=== PATIENT | female | born 1960 | race Caucasian/White ===

== ENCOUNTER 2018-02-10 11:12 | Inpatient (IN) | payer MEDICARE, OTHER ==
[2018-02-10] MEDS: SOD CHLORIDE 0.9% 1,000 ML IV (16:54)
[2018-02-10 16:57] LABS: ADD MAN DIFF? NO
[2018-02-10 17:00] LABS: WHITE BLOOD COUNT 7.3 10^3/ul (4.8-10.8)
[2018-02-10 17:00] LABS: BASOPHILS % 0.5 % (0.0-2.0); EOSINOPHILS # 0.1 10^3/ul (0.0-0.5); EOSINOPHILS % 1.4 % (0.0-7.0); HEMATOCRIT 40.5 % (37.0-47.0); HEMOGLOBIN 13.1 g/dl (12.0-16.0); LYMPHOCYTES # 2.5 10^3/ul (0.8-2.9); LYMPHOCYTES % 34.8 % (15.0-51.0); MEAN CORPUSCULAR HEMOGLOBIN 30.1 pg (29.0-33.0); MEAN CORPUSCULAR HGB CONC 32.3 g/dl (32.0-37.0); MEAN CORPUSCULAR VOLUME 93.1 fl (82.0-101.0); MEAN PLATELET VOLUME 12.2 fl (7.4-10.4); MONOCYTE # 0.8 10^3/ul (0.3-0.9); MONOCYTES % 10.6 % (0.0-11.0); NEUTROPHIL # 3.8 10^3/ul (1.6-7.5); NEUTROPHILS % 52.4 % (39.0-77.0); PLATELET COUNT 163 10^3/UL (140-415); RED BLOOD COUNT 4.35 10^6/ul (4.20-5.40); RED CELL DISTRIBUTION WIDTH 14.6 % (11.5-14.5)
[2018-02-10 17:46] LABS: ADD UMIC NO; UR ASCORBIC ACID NEGATIVE (NEGATIVE); UR BILIRUBIN (Dip) NEGATIVE (NEGATIVE); UR BLOOD (Dip) NEGATIVE (NEGATIVE); UR CLARITY CLEAR (CLEAR); UR COLOR STRAW (YELLOW); UR GLUCOSE (Dip) NEGATIVE (NEGATIVE); UR KETONES (Dip) NEGATIVE (NEGATIVE); UR LEUKOCYTE ESTERASE (Dip) NEGATIVE Leu/ul (NEGATIVE); UR NITRITE (Dip) NEGATIVE (NEGATIVE); UR SPECIFIC GRAVITY (Dip) 1.006 (1.003-1.030); UR TOTAL PROTEIN (Dip) NEGATIVE (NEGATIVE); UR UROBILINOGEN (Dip) NEGATIVE (NEGATIVE)
[2018-02-10 18:16] LABS: INR 0.96; PROTIME 12.9 Sec (11.9-14.9)
[2018-02-10 18:17] LABS: PARTIAL THROMBOPLASTIN TIME 26.6 Sec (25.0-35.0)
[2018-02-10 18:20] LABS: ALANINE AMINOTRANSFERASE 26 IU/L (13-69); ALBUMIN 3.8 g/dl (3.3-4.9); ALBUMIN/GLOBULIN RATIO 1.15; ALKALINE PHOSPHATASE 131 IU/L (42-121); ANION GAP 16 (8-16); ASPARTATE AMINO TRANSFERASE 18 IU/L (15-46); BILIRUBIN,INDIRECT 0.2 mg/dl (0-1.1); BILIRUBIN,TOTAL 0.2 mg/dl (0.2-1.3); BLOOD UREA NITROGEN 31 mg/dl (7-20); CALCIUM 7.6 mg/dl (8.4-10.2); CARBON DIOXIDE 23 mmol/L (21-31); CHLORIDE 109 mmol/L (97-110); CREATININE 1.59 mg/dl (0.44-1.00); GLUCOSE 83 mg/dl (70-220); POTASSIUM 4.9 mmol/L (3.5-5.1); SODIUM 143 mmol/L (135-144); TOTAL PROTEIN 7.1 g/dl (6.1-8.1)
[2018-02-10 18:32] LABS: TROPONIN-I < 0.010 ng/ml (0.000-0.120)
[2018-02-10] MEDS ORDERED: ONDANSETRON 4 MG INJ IV (19:00)
[2018-02-10] MEDS ORDERED: ACETAMINOPHEN 325 MG TAB PO (19:00)
[2018-02-10] MEDS: ZOLPIDEM 5 MG TAB PO (23:55)
[2018-02-11 06:01] LABS: ADD MAN DIFF? NO
[2018-02-11 06:05] LABS: WHITE BLOOD COUNT 6.9 10^3/ul (4.8-10.8)
[2018-02-11 06:05] LABS: BASOPHILS % 0.6 % (0.0-2.0); EOSINOPHILS # 0.1 10^3/ul (0.0-0.5); EOSINOPHILS % 1.6 % (0.0-7.0); HEMATOCRIT 37.8 % (37.0-47.0); HEMOGLOBIN 11.9 g/dl (12.0-16.0); LYMPHOCYTES # 2.5 10^3/ul (0.8-2.9); LYMPHOCYTES % 36.6 % (15.0-51.0); MEAN CORPUSCULAR HEMOGLOBIN 30.1 pg (29.0-33.0); MEAN CORPUSCULAR HGB CONC 31.5 g/dl (32.0-37.0); MEAN CORPUSCULAR VOLUME 95.7 fl (82.0-101.0); MEAN PLATELET VOLUME 12.4 fl (7.4-10.4); MONOCYTE # 0.6 10^3/ul (0.3-0.9); MONOCYTES % 9.3 % (0.0-11.0); NEUTROPHIL # 3.6 10^3/ul (1.6-7.5); NEUTROPHILS % 51.6 % (39.0-77.0); PLATELET COUNT 149 10^3/UL (140-415); RED BLOOD COUNT 3.95 10^6/ul (4.20-5.40); RED CELL DISTRIBUTION WIDTH 14.2 % (11.5-14.5)
[2018-02-11 06:41] LABS: ALANINE AMINOTRANSFERASE 26 IU/L (13-69); ALBUMIN 3.6 g/dl (3.3-4.9); ALBUMIN/GLOBULIN RATIO 1.09; ALKALINE PHOSPHATASE 122 IU/L (42-121); ANION GAP 13 (8-16); ASPARTATE AMINO TRANSFERASE 15 IU/L (15-46); BILIRUBIN,INDIRECT 0.2 mg/dl (0-1.1); BILIRUBIN,TOTAL 0.2 mg/dl (0.2-1.3); BLOOD UREA NITROGEN 28 mg/dl (7-20); CALCIUM 7.8 mg/dl (8.4-10.2); CARBON DIOXIDE 27 mmol/L (21-31); CHLORIDE 109 mmol/L (97-110); CREATININE 1.58 mg/dl (0.44-1.00); GLUCOSE 89 mg/dl (70-220); SODIUM 144 mmol/L (135-144); TOTAL PROTEIN 6.9 g/dl (6.1-8.1)
[2018-02-11 07:06] LABS: POTASSIUM 5.3 mmol/L (3.5-5.1)
[2018-02-11] MEDS: carBAMAZepine (XR) 100 MG TABSR PO ×3 (08:45→20:44)
[2018-02-11] MEDS: ACETAZOLAMIDE 250 MG TAB PO ×3 (08:46→20:44)
[2018-02-11] MEDS: FUROSEMIDE 40 MG TAB PO (08:47)
[2018-02-11] MEDS: LISINOPRIL 10 MG TAB PO (08:48)
[2018-02-11] MEDS ORDERED: carBAMAZepine (XR) 200 MG TABSR PO (09:00)
[2018-02-12 05:46] LABS: ADD MAN DIFF? NO
[2018-02-12 05:59] LABS: BASOPHILS % 0.3 % (0.0-2.0); EOSINOPHILS # 0.1 10^3/ul (0.0-0.5); EOSINOPHILS % 1.1 % (0.0-7.0); HEMATOCRIT 36.4 % (37.0-47.0); HEMOGLOBIN 11.3 g/dl (12.0-16.0); LYMPHOCYTES # 2.7 10^3/ul (0.8-2.9); LYMPHOCYTES % 38.1 % (15.0-51.0); MEAN CORPUSCULAR HEMOGLOBIN 29.8 pg (29.0-33.0); MEAN PLATELET VOLUME 12.4 fl (7.4-10.4); MONOCYTE # 0.7 10^3/ul (0.3-0.9); MONOCYTES % 9.4 % (0.0-11.0); NEUTROPHIL # 3.6 10^3/ul (1.6-7.5); NEUTROPHILS % 50.8 % (39.0-77.0); PLATELET COUNT 143 10^3/UL (140-415); RED BLOOD COUNT 3.79 10^6/ul (4.20-5.40); RED CELL DISTRIBUTION WIDTH 14.4 % (11.5-14.5)
[2018-02-12 05:59] LABS: WHITE BLOOD COUNT 7.1 10^3/ul (4.8-10.8)
[2018-02-12 06:43] LABS: ANION GAP 11 (8-16); BLOOD UREA NITROGEN 32 mg/dl (7-20); CARBON DIOXIDE 27 mmol/L (21-31); CHLORIDE 109 mmol/L (97-110); CREATININE 1.59 mg/dl (0.44-1.00); GLUCOSE 92 mg/dl (70-220); MAGNESIUM 2.5 mg/dl (1.7-2.5); POTASSIUM 4.7 mmol/L (3.5-5.1); SODIUM 142 mmol/L (135-144)
[2018-02-12] MEDS: ACETAZOLAMIDE 250 MG TAB PO ×3 (08:41→20:54)
[2018-02-12] MEDS: FUROSEMIDE 40 MG TAB PO (08:42)
[2018-02-12] MEDS: carBAMAZepine (XR) 100 MG TABSR PO ×3 (08:42→21:16)
[2018-02-12] MEDS: ENOXAPARIN 30 MG/0.3 ML SYG SC (15:37)
[2018-02-13 05:11] LABS: ADD UMIC NO
[2018-02-13 05:12] LABS: UR BILIRUBIN (Dip) NEGATIVE (NEGATIVE); UR BLOOD (Dip) NEGATIVE (NEGATIVE); UR CLARITY CLEAR (CLEAR); UR COLOR YELLOW (YELLOW); UR GLUCOSE (Dip) NEGATIVE (NEGATIVE); UR KETONES (Dip) NEGATIVE (NEGATIVE); UR NITRITE (Dip) NEGATIVE (NEGATIVE); UR TOTAL PROTEIN (Dip) NEGATIVE (NEGATIVE); UR UROBILINOGEN (Dip) 0.2 E.U./dL mg/dL (NEGATIVE)
[2018-02-13 05:13] LABS: UR LEUKOCYTE ESTERASE (Dip) NEGATIVE Leu/ul (NEGATIVE)
[2018-02-13 06:22] LABS: AMMONIA < 9 umol/l (9-30)
[2018-02-13 06:27] LABS: CARBAMAZEPINE (TEGRETOL) 6.6 ug/ml (8.0-12.0)
[2018-02-13] MEDS: carBAMAZepine (XR) 100 MG TABSR PO ×3 (07:23→23:30)
[2018-02-13] MEDS: ACETAZOLAMIDE 250 MG TAB PO ×3 (08:44→21:09)
[2018-02-13] MEDS: FUROSEMIDE 40 MG TAB PO (08:44)
[2018-02-13] MEDS: ENOXAPARIN 30 MG/0.3 ML SYG SC (08:45)
[2018-02-13] MEDS: LORAZEPAM 1 MG TAB PO (21:09)
[2018-02-14] MEDS: carBAMAZepine (XR) 100 MG TABSR PO ×3 (06:00→21:13)
[2018-02-14] MEDS: FUROSEMIDE 40 MG TAB PO (08:46)
[2018-02-14] MEDS: ACETAZOLAMIDE 250 MG TAB PO ×3 (08:47→21:13)
[2018-02-14] MEDS: ENOXAPARIN 30 MG/0.3 ML SYG SC (08:48)
[2018-02-15] MEDS: carBAMAZepine (XR) 100 MG TABSR PO ×2 (05:37→13:24)
[2018-02-15] MEDS: ENOXAPARIN 30 MG/0.3 ML SYG SC (08:47)
[2018-02-15] MEDS: ACETAZOLAMIDE 250 MG TAB PO ×3 (08:48→20:29)
[2018-02-15] MEDS: FUROSEMIDE 40 MG TAB PO (08:55)
== END 2018-02-15 21:00 | DRG 886 ==
LOC: MS2 22:02 → E/R 11:12 → MS2 18:57
PROVIDERS: Internal Medicine
DX: R48.2 Apraxia (principal); G92 Toxic encephalopathy; I42.0 Dilated cardiomyopathy; G91.2 (Idiopathic) normal pressure hydrocephalus; Z68.43 Body mass index [BMI] 50.0-59.9, adult; R26.0 Ataxic gait; R53.1 Weakness; F79 Unspecified intellectual disabilities; G40.909 Epilepsy, unspecified, not intractable, without status epilepticus; E66.9 Obesity, unspecified
CPT/HCPCS: 36415; 70450; 70551; 71045; 80048; 80053; 80156; 81003; 82140; 83735; 84484; 85025; 85610; 85730; 92526; 92610; 93005; 96360; 96361; 97110; 97116; 97162; 97530; 99285-25

== ENCOUNTER 2018-02-15 21:25 | Inpatient (IN) | payer MEDICARE, OTHER ==
[2018-02-15] MEDS ORDERED: MAGNESIUM HYDROXIDE 30ML CUP PO (22:00)
[2018-02-15] MEDS ORDERED: LACTULOSE 30ML CUP PO (22:00)
[2018-02-15] MEDS ORDERED: ACETAMINOPHEN 325 MG TAB PO (22:00)
[2018-02-15] MEDS ORDERED: BISACODYL 10 MG SUPP PR (22:00)
[2018-02-15] MEDS ORDERED: ZOLPIDEM 5 MG TAB PO (22:17)
[2018-02-16 04:58] LABS: ADD UMIC YES; UR ASCORBIC ACID NEGATIVE (NEGATIVE); UR BILIRUBIN (Dip) NEGATIVE (NEGATIVE); UR BLOOD (Dip) 1+ mg/dL (NEGATIVE); UR CLARITY CLEAR (CLEAR); UR COLOR YELLOW (YELLOW); UR GLUCOSE (Dip) NEGATIVE (NEGATIVE); UR KETONES (Dip) NEGATIVE (NEGATIVE); UR LEUKOCYTE ESTERASE (Dip) NEGATIVE Leu/ul (NEGATIVE); UR NITRITE (Dip) NEGATIVE (NEGATIVE); UR RBC 0 /HPF (0-5); UR SPECIFIC GRAVITY (Dip) 1.017 (1.003-1.030); UR SQUAMOUS EPITHELIAL CELL FEW /HPF (FEW); UR TOTAL PROTEIN (Dip) NEGATIVE (NEGATIVE); UR UROBILINOGEN (Dip) NEGATIVE (NEGATIVE); UR WBC 1 /HPF (0-5)
[2018-02-16] MEDS ORDERED: LACTULOSE 30ML CUP PO (06:00)
[2018-02-16] MEDS ORDERED: ACETAMINOPHEN 325 MG TAB PO (06:00)
[2018-02-16] MEDS ORDERED: MAGNESIUM HYDROXIDE 30ML CUP PO (06:00)
[2018-02-16] MEDS ORDERED: BISACODYL 10 MG SUPP PR (06:00)
[2018-02-16] MEDS: carBAMAZepine (XR) 100 MG TABSR PO ×3 (06:15→21:02)
[2018-02-16 06:34] LABS: ADD MAN DIFF? NO
[2018-02-16 06:42] LABS: BASOPHILS % 0.3 % (0.0-2.0); EOSINOPHILS # 0.1 10^3/ul (0.0-0.5); EOSINOPHILS % 1.9 % (0.0-7.0); HEMOGLOBIN 11.8 g/dl (12.0-16.0); LYMPHOCYTES # 1.9 10^3/ul (0.8-2.9); LYMPHOCYTES % 33.3 % (15.0-51.0); MEAN CORPUSCULAR HGB CONC 30.3 g/dl (32.0-37.0); MEAN CORPUSCULAR VOLUME 95.8 fl (82.0-101.0); MEAN PLATELET VOLUME 12.5 fl (7.4-10.4); MONOCYTE # 0.6 10^3/ul (0.3-0.9); MONOCYTES % 10.5 % (0.0-11.0); NEUTROPHIL # 3.1 10^3/ul (1.6-7.5); NEUTROPHILS % 53.8 % (39.0-77.0); PLATELET COUNT 131 10^3/UL (140-415); RED BLOOD COUNT 4.07 10^6/ul (4.20-5.40)
[2018-02-16 06:42] LABS: WHITE BLOOD COUNT 5.8 10^3/ul (4.8-10.8)
[2018-02-16 07:07] LABS: ALANINE AMINOTRANSFERASE 24 IU/L (13-69); ALBUMIN 3.5 g/dl (3.3-4.9); ALBUMIN/GLOBULIN RATIO 1.06; ALKALINE PHOSPHATASE 113 IU/L (42-121); ANION GAP 13 (8-16); ASPARTATE AMINO TRANSFERASE 16 IU/L (15-46); BILIRUBIN,INDIRECT 0.2 mg/dl (0-1.1); BILIRUBIN,TOTAL 0.2 mg/dl (0.2-1.3); BLOOD UREA NITROGEN 34 mg/dl (7-20); CALCIUM 8.6 mg/dl (8.4-10.2); CARBON DIOXIDE 31 mmol/L (21-31); CHLORIDE 107 mmol/L (97-110); CREATININE 1.42 mg/dl (0.44-1.00); GLUCOSE 91 mg/dl (70-220); POTASSIUM 4.4 mmol/L (3.5-5.1); SODIUM 147 mmol/L (135-144); TOTAL PROTEIN 6.8 g/dl (6.1-8.1)
[2018-02-16] MEDS: DOCUSATE SODIUM 100 MG CAP PO ×2 (08:47→21:01)
[2018-02-16] MEDS: ACETAZOLAMIDE 250 MG TAB PO ×3 (08:48→21:01)
[2018-02-16] MEDS: FUROSEMIDE 40 MG TAB PO (08:48)
[2018-02-16] MEDS: ENOXAPARIN 30 MG/0.3 ML SYG SC (08:50)
[2018-02-16] MEDS ORDERED: DOCUSATE SODIUM 100 MG CAP PO (09:00)
[2018-02-16] MEDS ORDERED: SENNA TAB PO (21:00)
[2018-02-16] MEDS: SENNA TAB PO (21:01)
[2018-02-17] MEDS: carBAMAZepine (XR) 100 MG TABSR PO ×3 (06:17→21:22)
[2018-02-17] MEDS: DOCUSATE SODIUM 100 MG CAP PO ×2 (08:49→21:19)
[2018-02-17] MEDS: ACETAZOLAMIDE 250 MG TAB PO ×3 (08:50→21:19)
[2018-02-17] MEDS: FUROSEMIDE 40 MG TAB PO (08:50)
[2018-02-17] MEDS: ENOXAPARIN 30 MG/0.3 ML SYG SC (08:51)
[2018-02-17 16:40] LABS: ADD UMIC NO; UR ASCORBIC ACID NEGATIVE (NEGATIVE); UR BILIRUBIN (Dip) NEGATIVE (NEGATIVE); UR BLOOD (Dip) NEGATIVE (NEGATIVE); UR CLARITY CLEAR (CLEAR); UR COLOR STRAW (YELLOW); UR GLUCOSE (Dip) NEGATIVE (NEGATIVE); UR KETONES (Dip) NEGATIVE (NEGATIVE); UR LEUKOCYTE ESTERASE (Dip) NEGATIVE Leu/ul (NEGATIVE); UR NITRITE (Dip) NEGATIVE (NEGATIVE); UR SPECIFIC GRAVITY (Dip) 1.008 (1.003-1.030); UR TOTAL PROTEIN (Dip) NEGATIVE (NEGATIVE); UR UROBILINOGEN (Dip) NEGATIVE (NEGATIVE)
[2018-02-17] MEDS: SENNA TAB PO (21:19)
[2018-02-18] MEDS: carBAMAZepine (XR) 100 MG TABSR PO ×3 (06:49→21:31)
[2018-02-18] MEDS: ACETAZOLAMIDE 250 MG TAB PO ×3 (08:47→21:30)
[2018-02-18] MEDS: DOCUSATE SODIUM 100 MG CAP PO ×2 (08:47→21:00)
[2018-02-18] MEDS: FUROSEMIDE 40 MG TAB PO (08:47)
[2018-02-18] MEDS: ENOXAPARIN 30 MG/0.3 ML SYG SC (08:48)
[2018-02-18] MEDS: SENNA TAB PO (21:00)
[2018-02-19] MEDS: carBAMAZepine (XR) 100 MG TABSR PO ×3 (06:52→21:37)
[2018-02-19] MEDS: DOCUSATE SODIUM 100 MG CAP PO ×2 (08:34→21:00)
[2018-02-19] MEDS: ACETAZOLAMIDE 250 MG TAB PO ×3 (08:34→21:37)
[2018-02-19] MEDS: ENOXAPARIN 30 MG/0.3 ML SYG SC (08:37)
[2018-02-19] MEDS: FUROSEMIDE 40 MG TAB PO (08:39)
[2018-02-19] MEDS: SENNA TAB PO (21:00)
[2018-02-20 06:31] LABS: ADD MAN DIFF? NO
[2018-02-20] MEDS: carBAMAZepine (XR) 100 MG TABSR PO ×3 (06:33→21:20)
[2018-02-20 06:34] LABS: BASOPHIL # 0.1 10^3/ul (0.0-0.1); BASOPHILS % 0.8 % (0.0-2.0); EOSINOPHILS # 0.1 10^3/ul (0.0-0.5); EOSINOPHILS % 1.8 % (0.0-7.0); HEMOGLOBIN 12.1 g/dl (12.0-16.0); MEAN CORPUSCULAR HEMOGLOBIN 28.7 pg (29.0-33.0); MEAN CORPUSCULAR HGB CONC 30.3 g/dl (32.0-37.0); MEAN PLATELET VOLUME 12.3 fl (7.4-10.4); MONOCYTE # 0.7 10^3/ul (0.3-0.9); NEUTROPHIL # 4.1 10^3/ul (1.6-7.5); PLATELET COUNT 160 10^3/UL (140-415); RED BLOOD COUNT 4.21 10^6/ul (4.20-5.40); RED CELL DISTRIBUTION WIDTH 14.2 % (11.5-14.5)
[2018-02-20 07:00] LABS: ANION GAP 13 (8-16); BLOOD UREA NITROGEN 44 mg/dl (7-20); CALCIUM 8.5 mg/dl (8.4-10.2); CARBON DIOXIDE 28 mmol/L (21-31); CHLORIDE 108 mmol/L (97-110); CREATININE 1.51 mg/dl (0.44-1.00); GLUCOSE 89 mg/dl (70-220); MAGNESIUM 2.6 mg/dl (1.7-2.5); POTASSIUM 4.4 mmol/L (3.5-5.1); SODIUM 145 mmol/L (135-144)
[2018-02-20] MEDS: DOCUSATE SODIUM 100 MG CAP PO ×2 (09:31→20:05)
[2018-02-20] MEDS: FUROSEMIDE 40 MG TAB PO (09:31)
[2018-02-20] MEDS: ACETAZOLAMIDE 250 MG TAB PO ×3 (09:32→20:07)
[2018-02-20] MEDS: ENOXAPARIN 30 MG/0.3 ML SYG SC (09:34)
[2018-02-20] MEDS: SENNA TAB PO (20:06)
[2018-02-21] MEDS: carBAMAZepine (XR) 100 MG TABSR PO ×3 (06:11→21:11)
[2018-02-21] MEDS: DOCUSATE SODIUM 100 MG CAP PO ×2 (08:41→21:11)
[2018-02-21] MEDS: ACETAZOLAMIDE 250 MG TAB PO ×3 (08:41→21:14)
[2018-02-21] MEDS: ENOXAPARIN 30 MG/0.3 ML SYG SC (08:42)
[2018-02-21] MEDS: FUROSEMIDE 40 MG TAB PO (08:42)
[2018-02-21] MEDS: SENNA TAB PO (21:11)
[2018-02-22] MEDS: carBAMAZepine (XR) 100 MG TABSR PO ×3 (06:52→22:51)
[2018-02-22] MEDS: ACETAZOLAMIDE 250 MG TAB PO ×3 (08:59→20:50)
[2018-02-22] MEDS: DOCUSATE SODIUM 100 MG CAP PO ×2 (08:59→20:49)
[2018-02-22] MEDS: FUROSEMIDE 40 MG TAB PO (08:59)
[2018-02-22] MEDS: ENOXAPARIN 30 MG/0.3 ML SYG SC (09:01)
[2018-02-22] MEDS: SENNA TAB PO (20:50)
[2018-02-23] MEDS: carBAMAZepine (XR) 100 MG TABSR PO ×3 (06:26→21:39)
[2018-02-23] MEDS: DOCUSATE SODIUM 100 MG CAP PO ×2 (09:07→21:00)
[2018-02-23] MEDS: ACETAZOLAMIDE 250 MG TAB PO ×3 (09:07→20:50)
[2018-02-23] MEDS: FUROSEMIDE 40 MG TAB PO (09:08)
[2018-02-23] MEDS: ENOXAPARIN 30 MG/0.3 ML SYG SC (09:11)
[2018-02-23] MEDS: SENNA TAB PO (21:00)
[2018-02-24] MEDS: carBAMAZepine (XR) 100 MG TABSR PO ×3 (05:43→21:05)
[2018-02-24] MEDS: DOCUSATE SODIUM 100 MG CAP PO ×2 (09:00→20:42)
[2018-02-24] MEDS: ACETAZOLAMIDE 250 MG TAB PO ×3 (11:09→20:39)
[2018-02-24] MEDS: FUROSEMIDE 40 MG TAB PO (11:10)
[2018-02-24] MEDS: ENOXAPARIN 30 MG/0.3 ML SYG SC (11:11)
[2018-02-24] MEDS: SENNA TAB PO (20:42)
[2018-02-25] MEDS: carBAMAZepine (XR) 100 MG TABSR PO ×3 (06:16→21:18)
[2018-02-25 07:02] LABS: ADD MAN DIFF? NO
[2018-02-25 07:07] LABS: WHITE BLOOD COUNT 6.7 10^3/ul (4.8-10.8)
[2018-02-25 07:07] LABS: BASOPHILS % 0.4 % (0.0-2.0); EOSINOPHILS # 0.1 10^3/ul (0.0-0.5); EOSINOPHILS % 1.6 % (0.0-7.0); HEMATOCRIT 38.7 % (37.0-47.0); HEMOGLOBIN 11.9 g/dl (12.0-16.0); LYMPHOCYTES # 2.4 10^3/ul (0.8-2.9); LYMPHOCYTES % 36.2 % (15.0-51.0); MEAN CORPUSCULAR HEMOGLOBIN 29.3 pg (29.0-33.0); MEAN CORPUSCULAR HGB CONC 30.7 g/dl (32.0-37.0); MEAN CORPUSCULAR VOLUME 95.3 fl (82.0-101.0); MEAN PLATELET VOLUME 12.3 fl (7.4-10.4); MONOCYTE # 0.7 10^3/ul (0.3-0.9); MONOCYTES % 9.7 % (0.0-11.0); NEUTROPHIL # 3.5 10^3/ul (1.6-7.5); NEUTROPHILS % 51.8 % (39.0-77.0); PLATELET COUNT 169 10^3/UL (140-415); RED BLOOD COUNT 4.06 10^6/ul (4.20-5.40); RED CELL DISTRIBUTION WIDTH 14.2 % (11.5-14.5)
[2018-02-25 07:23] LABS: ANION GAP 11 (8-16); BLOOD UREA NITROGEN 42 mg/dl (7-20); CALCIUM 8.5 mg/dl (8.4-10.2); CARBON DIOXIDE 28 mmol/L (21-31); CHLORIDE 109 mmol/L (97-110); CREATININE 1.34 mg/dl (0.44-1.00); GLUCOSE 87 mg/dl (70-220); MAGNESIUM 2.4 mg/dl (1.7-2.5); POTASSIUM 4.4 mmol/L (3.5-5.1); SODIUM 144 mmol/L (135-144)
[2018-02-25] MEDS: ACETAZOLAMIDE 250 MG TAB PO ×3 (08:51→20:19)
[2018-02-25] MEDS: FUROSEMIDE 40 MG TAB PO (08:52)
[2018-02-25] MEDS: DOCUSATE SODIUM 100 MG CAP PO ×2 (08:52→20:23)
[2018-02-25] MEDS: ENOXAPARIN 30 MG/0.3 ML SYG SC (08:56)
[2018-02-25] MEDS: SENNA TAB PO (20:23)
[2018-02-26] MEDS: carBAMAZepine (XR) 100 MG TABSR PO ×3 (05:58→21:27)
[2018-02-26] MEDS: DOCUSATE SODIUM 100 MG CAP PO (08:21)
[2018-02-26] MEDS: FUROSEMIDE 40 MG TAB PO (08:38)
[2018-02-26] MEDS: ACETAZOLAMIDE 250 MG TAB PO ×3 (08:39→21:27)
[2018-02-26] MEDS: ENOXAPARIN 30 MG/0.3 ML SYG SC (08:40)
[2018-02-27] MEDS: carBAMAZepine (XR) 100 MG TABSR PO ×2 (06:02→12:55)
[2018-02-27] MEDS: ACETAZOLAMIDE 250 MG TAB PO ×2 (08:19→12:53)
[2018-02-27] MEDS: FUROSEMIDE 40 MG TAB PO (08:20)
[2018-02-27] MEDS: ENOXAPARIN 30 MG/0.3 ML SYG SC (08:23)
== END 2018-02-27 14:00 | disposition home health service (06) | DRG 92 ==
LOC: VRC 21:25
PROC: F07Z5ZZ Bed Mobility Treatment (ICD-10-PCS; principal; 2018-02-15)
PROC: F08Z2ZZ Grooming/Personal Hygiene Treatment (ICD-10-PCS; 2018-02-15)
PROC: F06Z6ZZ Communicative/Cognitive Integration Skills Treatment (ICD-10-PCS; 2018-02-15)
PROC: 3E0F7GC Introduction of Other Therapeutic Substance into Respiratory Tract, Via Natural or Artificial Opening (ICD-10-PCS; 2018-02-15)
DX: G92 Toxic encephalopathy (principal); I42.9 Cardiomyopathy, unspecified; Z68.44 Body mass index [BMI] 60.0-69.9, adult; N28.9 Disorder of kidney and ureter, unspecified; R13.10 Dysphagia, unspecified; G40.909 Epilepsy, unspecified, not intractable, without status epilepticus; I10 Essential (primary) hypertension; E66.01 Morbid (severe) obesity due to excess calories; F06.31 Mood disorder due to known physiological condition with depressive features; F79 Unspecified intellectual disabilities
CPT/HCPCS: 71045; 80048; 80053; 81001; 81003; 83735; 85025; 87081; 87086; 97110; 97112; 97116; 97150; 97163; 97167; 97530; 97535

== ENCOUNTER → 2019-02-15 | Outpatient (CLI) | payer MEDICARE, OTHER ==
[2019-02-15 10:47] LABS: ADD MAN DIFF? NO
[2019-02-15 10:56] LABS: BASOPHILS % 0.6 % (0.0-2.0); EOSINOPHILS # 0.1 10^3/ul (0.0-0.5); EOSINOPHILS % 1.7 % (0.0-7.0); HEMATOCRIT 40.9 % (37.0-47.0); HEMOGLOBIN 12.7 g/dl (12.0-16.0); LYMPHOCYTES # 2.1 10^3/ul (0.8-2.9); LYMPHOCYTES % 29.2 % (15.0-51.0); MEAN CORPUSCULAR HEMOGLOBIN 29.4 pg (29.0-33.0); MEAN CORPUSCULAR HGB CONC 31.1 g/dl (32.0-37.0); MEAN CORPUSCULAR VOLUME 94.7 fl (82.0-101.0); MEAN PLATELET VOLUME 12.3 fl (7.4-10.4); MONOCYTE # 0.6 10^3/ul (0.3-0.9); MONOCYTES % 8.3 % (0.0-11.0); NEUTROPHIL # 4.3 10^3/ul (1.6-7.5); NEUTROPHILS % 59.9 % (39.0-77.0); PLATELET COUNT 174 10^3/UL (140-415); RED BLOOD COUNT 4.32 10^6/ul (4.20-5.40); RED CELL DISTRIBUTION WIDTH 14.6 % (11.5-14.5)
[2019-02-15 10:56] LABS: WHITE BLOOD COUNT 7.2 10^3/ul (4.8-10.8)
[2019-02-15 11:12] LABS: ANION GAP 11 (5-13); BLOOD UREA NITROGEN 41 mg/dl (7-20); CALCIUM 8.8 mg/dl (8.4-10.2); CARBON DIOXIDE 23 mmol/L (21-31); CHLORIDE 114 mmol/L (97-110); CREATININE 1.84 mg/dl (0.44-1.00); Estimated GFR 28 mL/min (>60); GLUCOSE 101 mg/dl (70-220); POTASSIUM 5.3 mmol/L (3.5-5.1); SODIUM 148 mmol/L (135-144)
== END | disposition home or self-care (01) ==
LOC: LAB 10:22
DX: J18.9 Pneumonia, unspecified organism (principal)
CPT/HCPCS: 71046; 80048; 85025

== ENCOUNTER 2019-03-11 08:52 | Inpatient (IN) | payer MEDICARE, OTHER ==
[2019-03-11 09:42] LABS: ADD MAN DIFF? NO
[2019-03-11 09:43] LABS: WHITE BLOOD COUNT 6.9 10^3/ul (4.8-10.8)
[2019-03-11 09:43] LABS: BASOPHILS % 0.6 % (0.0-2.0); EOSINOPHILS # 0.1 10^3/ul (0.0-0.5); EOSINOPHILS % 0.7 % (0.0-7.0); HEMATOCRIT 42.4 % (37.0-47.0); HEMOGLOBIN 13.3 g/dl (12.0-16.0); LYMPHOCYTES # 2.6 10^3/ul (0.8-2.9); LYMPHOCYTES % 37.5 % (15.0-51.0); MEAN CORPUSCULAR HEMOGLOBIN 29.4 pg (29.0-33.0); MEAN CORPUSCULAR HGB CONC 31.4 g/dl (32.0-37.0); MEAN CORPUSCULAR VOLUME 93.8 fl (82.0-101.0); MEAN PLATELET VOLUME 11.8 fl (7.4-10.4); MONOCYTE # 0.6 10^3/ul (0.3-0.9); MONOCYTES % 8.7 % (0.0-11.0); NEUTROPHIL # 3.6 10^3/ul (1.6-7.5); NEUTROPHILS % 52.2 % (39.0-77.0); PLATELET COUNT 176 10^3/UL (140-415); RED BLOOD COUNT 4.52 10^6/ul (4.20-5.40); RED CELL DISTRIBUTION WIDTH 14.3 % (11.5-14.5)
[2019-03-11 10:02] LABS: INR 0.99; PROTIME 13.2 Sec (11.9-14.9)
[2019-03-11 10:03] LABS: ALANINE AMINOTRANSFERASE 19 IU/L (13-69); ALBUMIN 4.4 g/dl (3.3-4.9); ALBUMIN/GLOBULIN RATIO 1.12; ALKALINE PHOSPHATASE 120 IU/L (42-121); ANION GAP 8 (5-13); ASPARTATE AMINO TRANSFERASE 16 IU/L (15-46); BILIRUBIN,INDIRECT 0.3 mg/dl (0-1.1); BILIRUBIN,TOTAL 0.3 mg/dl (0.2-1.3); CALCIUM 9.4 mg/dl (8.4-10.2); CARBON DIOXIDE 27 mmol/L (21-31); CHLORIDE 111 mmol/L (97-110); Estimated GFR 31 mL/min (>60); GLUCOSE 96 mg/dl (70-220); TOTAL PROTEIN 8.3 g/dl (6.1-8.1)
[2019-03-11 10:07] LABS: BLOOD UREA NITROGEN 40 mg/dl (7-20); CREATININE 1.69 mg/dl (0.44-1.00); POTASSIUM 5.4 mmol/L (3.5-5.1); SODIUM 146 mmol/L (135-144)
[2019-03-11 10:08] LABS: PARTIAL THROMBOPLASTIN TIME 23.9 Sec (23.0-35.0)
[2019-03-11 11:07] LABS: ALANINE AMINOTRANSFERASE 16 IU/L (13-69); ALBUMIN 4.3 g/dl (3.3-4.9); ALBUMIN/GLOBULIN RATIO 1.13; ALKALINE PHOSPHATASE 117 IU/L (42-121); ANION GAP 8 (5-13); ASPARTATE AMINO TRANSFERASE 17 IU/L (15-46); BILIRUBIN,INDIRECT 0.3 mg/dl (0-1.1); BILIRUBIN,TOTAL 0.3 mg/dl (0.2-1.3); CALCIUM 9.4 mg/dl (8.4-10.2); CARBON DIOXIDE 27 mmol/L (21-31); CHLORIDE 111 mmol/L (97-110); Estimated GFR 32 mL/min (>60); GLUCOSE 97 mg/dl (70-220); TOTAL PROTEIN 8.1 g/dl (6.1-8.1)
[2019-03-11 11:08] LABS: BLOOD UREA NITROGEN 40 mg/dl (7-20); CREATININE 1.64 mg/dl (0.44-1.00); SODIUM 146 mmol/L (135-144)
[2019-03-11 11:10] LABS: POTASSIUM 5.4 mmol/L (3.5-5.1)
[2019-03-11] MEDS ORDERED: GLYCOPYRROLATE 0.4 MG INJ (14:24)
[2019-03-11] MEDS ORDERED: MEPERIDINE 100 MG INJ (14:24)
[2019-03-11] MEDS ORDERED: PROPOFOL 20 ML (14:24)
[2019-03-11] MEDS ORDERED: LIDOCAINE 2% (SDV) 5 ML INJ (14:24)
[2019-03-11] MEDS ORDERED: SUCCINYLCHOLINE CHLORIDE 100 MG/5 ML SYG IV (14:24)
[2019-03-11] MEDS ORDERED: ROCURONIUM 50 MG INJ (14:24)
[2019-03-11] MEDS ORDERED: NEOSTIGMINE 3 MG/3 ML SYRINGE (14:24)
[2019-03-11] MEDS ORDERED: MIDAZOLAM 1 MG/ML 2 ML INJ (14:26)
[2019-03-11] MEDS: CEFAZOLIN 2 GM/50 ML (PMX) 50 ML IVPB (14:45)
[2019-03-11] MEDS ORDERED: ATROPINE 1 MG/10 ML SYRINGE (15:02)
[2019-03-11] MEDS ORDERED: EPHEDrine 25 MG/5 ML SYG (15:03)
[2019-03-11] MEDS ORDERED: CEFAZOLIN 1 GM INJ (15:03)
[2019-03-11] MEDS ORDERED: ONDANSETRON 4 MG INJ (15:33)
[2019-03-11] MEDS ORDERED: METOCLOPRAMIDE 10 MG INJ (15:33)
[2019-03-11] MEDS ORDERED: D5W-0.45 NACL + KCL 20 MEQ 1,000 ML IV (15:38)
[2019-03-11] MEDS ORDERED: ONDANSETRON 4 MG INJ IV (16:00)
[2019-03-11] MEDS ORDERED: ACETAMINOPHEN 1000MG/100ML IV 100 ML IVPB (16:00)
[2019-03-11] MEDS: morphine 2 MG INJ IV (16:10)
[2019-03-11] MEDS: SOD CHLORIDE 0.9% 1,000 ML IV (16:26)
[2019-03-11] MEDS: DEXTROSE 5%-0.45% NACL 1,000 ML IV (18:34)
[2019-03-11] MEDS: ACETAZOLAMIDE 250 MG TAB PO (21:39)
[2019-03-11] MEDS: carBAMAZepine (XR) 200 MG TABSR PO (22:47)
[2019-03-12 04:59] LABS: ADD MAN DIFF? NO
[2019-03-12 05:05] LABS: BASOPHILS % 0.6 % (0.0-2.0); EOSINOPHILS # 0.1 10^3/ul (0.0-0.5); EOSINOPHILS % 1.2 % (0.0-7.0); HEMATOCRIT 38.8 % (37.0-47.0); HEMOGLOBIN 11.8 g/dl (12.0-16.0); LYMPHOCYTES # 2.3 10^3/ul (0.8-2.9); LYMPHOCYTES % 31.8 % (15.0-51.0); MEAN CORPUSCULAR HEMOGLOBIN 29.8 pg (29.0-33.0); MEAN CORPUSCULAR HGB CONC 30.4 g/dl (32.0-37.0); MEAN PLATELET VOLUME 11.9 fl (7.4-10.4); MONOCYTE # 0.7 10^3/ul (0.3-0.9); MONOCYTES % 9.5 % (0.0-11.0); NEUTROPHIL # 4.1 10^3/ul (1.6-7.5); NEUTROPHILS % 56.6 % (39.0-77.0); PLATELET COUNT 170 10^3/UL (140-415); RED BLOOD COUNT 3.96 10^6/ul (4.20-5.40); RED CELL DISTRIBUTION WIDTH 14.5 % (11.5-14.5)
[2019-03-12 05:05] LABS: WHITE BLOOD COUNT 7.3 10^3/ul (4.8-10.8)
[2019-03-12 05:27] LABS: ANION GAP 3 (5-13); BLOOD UREA NITROGEN 34 mg/dl (7-20); CARBON DIOXIDE 27 mmol/L (21-31); CHLORIDE 110 mmol/L (97-110); CREATININE 1.52 mg/dl (0.44-1.00); Estimated GFR 35 mL/min (>60); GLUCOSE 90 mg/dl (70-220); POTASSIUM 5.5 mmol/L (3.5-5.1); SODIUM 140 mmol/L (135-144)
[2019-03-12] MEDS: DEXTROSE 5%-0.45% NACL 1,000 ML IV (05:55)
[2019-03-12] MEDS: carBAMAZepine (XR) 100 MG TABSR PO (05:57)
[2019-03-12] MEDS: FUROSEMIDE 40 MG TAB PO (09:08)
[2019-03-12] MEDS: ACETAZOLAMIDE 250 MG TAB PO (09:09)
[2019-03-12] MEDS: carBAMAZepine (XR) 200 MG TABSR PO (14:17)
[2019-03-13] MEDS ORDERED: ERGOCALCIFEROL 50,000 UNIT CAP PO (09:00)
== END 2019-03-12 18:55 | disposition home or self-care (01) | DRG 582 ==
LOC: SDS 08:52 → REC 15:39 → MS1 16:50
PROC: 0HBU0ZZ Excision of Left Breast, Open Approach (ICD-10-PCS; principal; 2019-03-11 12:30)
DX: C50.912 Malignant neoplasm of unspecified site of left female breast (principal); R47.01 Aphasia; I42.0 Dilated cardiomyopathy; R62.50 Unspecified lack of expected normal physiological development in childhood; E87.5 Hyperkalemia; N19 Unspecified kidney failure
CPT/HCPCS: 80048; 80053; 85025; 85610; 85730; 88307